=== PATIENT | male | born 1985 | race Caucasian/White ===

== ENCOUNTER → 2019-02-09 | Outpatient (CLI) | payer OTHER ==
--- NOTE | 2019-02-09 12:09 | RAD ---
EXAM DESCRIPTION: Shoulder,Right 2 or More Views CLINICAL HISTORY: M25.511 COMPARISON: None Available. TECHNIQUE: Four views of the right shoulder. FINDINGS: There is adequate internal and external rotation. Normal alignment on transaxillary view and scapular Y view. There is no fracture or dislocation. There are no significant degenerative changes observed. AC joint appears intact. No focal bone lesion. IMPRESSION: Negative for fracture or dislocation. Electronically signed by: Goran Sommer MD 02/09/2019 12:07 PM CDT
== END ==
LOC: RAD 08:11
PROVIDERS: ATTEND Orthopaedic Surgery
DX: M25.511 Pain in right shoulder (principal)

== ENCOUNTER → 2020-08-24 | Outpatient (CLI) | payer OTHER ==
--- NOTE | 2020-08-25 10:50 | MRI ---
Study: MRI of the Right Shoulder. Indication: PAIN IN RIGHT SHOULDER Technique: Multiplanar, multi sequence MRI of the right shoulder was obtained without intravenous contrast. Comparison: None. Findings: Mild to moderate AC joint osteoarthritis with tiny joint effusion. Mild type II acromion with mild lateral downsloping. Trace subacromial subdeltoid bursal fluid. Supraspinatus and infraspinatus tendinosis with scattered interstitial fissuring throughout the infraspinatus tendon insertion and critical zone. No full-thickness tear or tendon retraction. Subscapularis tendinosis. Rotator cuff musculature normal without atrophy, fatty infiltration, or intramuscular edema. Subtle intracapsular long head biceps tendinosis. Circumferential labral truncation and fraying with suspected undersurface tearing superiorly. Tiny anterior superior sublabral foramen. No acute fracture or advanced glenohumeral joint osteoarthritis. Impression: Supraspinatus and infraspinatus tendinosis with scattered interstitial fissuring throughout the infraspinatus tendon as above. No full-thickness tear. Subscapularis tendinosis. Subtle intracapsular long head biceps tendinosis. Circumferential labral truncation and fraying with suspected undersurface tearing superiorly. Mild AC joint osteoarthritis. Electronically signed by: Mukund Matthews MD 08/25/2020 10:48 AM [facility]
== END ==
LOC: MRI 08:07
PROVIDERS: ATTEND Orthopaedic Surgery
DX: M75.81 Other shoulder lesions, right shoulder (principal); S43.431A Superior glenoid labrum lesion of right shoulder, initial encounter; M19.011 Primary osteoarthritis, right shoulder

== ENCOUNTER → 2020-09-11 | Outpatient (CLI) | payer OTHER ==
--- NOTE | 2020-09-11 12:25 | RAD ---
EXAM DESCRIPTION: Arthrogram Shoulder Right: RF. CLINICAL HISTORY: ROTATOR CUFF TEAR OR RUPTURE COMPARISON: Post-arthrogram MRI scan of the right shoulder same date. MRI scan right shoulder without contrast August 24 TECHNIQUE: The procedure was performed by Dr. Mckinnon; explained to the patient with risks and benefits. Timeout was performed to confirm patient ID, the type of procedure, and body part to be examined. The patient gave verbal and written consent. Patient supine on the fluoroscopic table with right shoulder in external rotation. The anterior mid superior right glenohumeral joint was localized by fluoroscopy. The skin was marked, then prepped and draped in a sterile fashion. 10 cc of 1% xylocaine, 1 cc sodium bicarbonate , given intradermally and intramuscularly. 5 cc of nonionic contrast was prepared in a syringe. A mixture of 10 cc nonionic contrast, 10 cc of sterile normal saline and 0.1% gadolinium was prepared in a second syringe. A 3-cm, 25-ga. needle was introduced into the anterior superior right glenohumeral joint capsule under fluoroscopic visualization. A test injection of 2 cc of the contrast only was performed under fluoroscopy. Additional 8 cc of the contrast mixture was then injected under fluoroscopy. The patient tolerated the procedure well. Patient was transferred to the high field MRI suite for multiplanar imaging. No immediate complications. Fluoroscopy time was 0.9 minutes. DAP 3.01 Gy-cm2. Single anterior image of the right shoulder in external rotation after contrast injection with access needle in place obtained. IMPRESSION: Successful, fluoroscopically guided arthrogram of the right shoulder performed by Dr. Mckinnon,. Permanent images from this procedure are maintained in the patient's medical record. Electronically signed by: Earl Mckinnon MD 09/11/2020 12:24 PM [facility]
--- NOTE | 2020-09-11 12:31 | MRI ---
Study: MRI Arthrogram of the Right Shoulder. Indication: ROTATOR CUFF TEAR OR RUPTURE Technique: Multiplanar, multi sequence MRI arthrogram of the right shoulder was obtained after intra-articular injection of contrast. Please see the accompanying report regarding the procedural portion of this exam. Comparison: August 24, 2020 Findings: Mild to moderate AC joint osteoarthritis with tiny joint effusion. Mild type II acromion with mild lateral downsloping. Trace subacromial subdeltoid bursal fluid. Supraspinatus and infraspinatus tendinosis with scattered interstitial fissuring throughout the infraspinatus tendon insertion and critical zone. No full-thickness tear or tendon retraction. Subscapularis tendinosis. Rotator cuff musculature normal without atrophy, fatty infiltration, or intramuscular edema. Subtle intracapsular long head biceps tendinosis. Contrast distends distally along along the biceps tendon sheath. Circumferential labral truncation and fraying with irregular undersurface tearing of the bicipital labral anchor with posterior propagation to the 10:00 position indicating SLAP tear. No acute fracture or advanced glenohumeral joint osteoarthritis. Impression: Supraspinatus and infraspinatus tendinosis with scattered interstitial fissuring throughout the infraspinatus tendon as above. No full-thickness tear. Subscapularis tendinosis. Subtle intracapsular long head biceps tendinosis. Circumferential labral truncation and fraying with superimposed SLAP tear. Mild to moderate AC joint osteoarthritis. Electronically signed by: Mukund Matthews MD 09/11/2020 12:29 PM [employer]
== END ==
LOC: RAD 08:10
PROVIDERS: ATTEND Orthopaedic Surgery
DX: M75.101 Unspecified rotator cuff tear or rupture of right shoulder, not specified as traumatic (principal); M77.9 Enthesopathy, unspecified; M75.21 Bicipital tendinitis, right shoulder; S43.431A Superior glenoid labrum lesion of right shoulder, initial encounter